=== PATIENT | female | born 1995 | race Caucasian/White ===

== ENCOUNTER 2022-03-30 09:13 | Inpatient (IN) | payer OTHER ==
[~2022-03-30] VITALS: Ht 165.1 cm; Wt 60.8 kg
[~2022-03-30 09:13] MED LIST: BENTYL 10MG CAP10 MG PO; CLEOCIN HCL300 MG PO; IBUPROFEN800 MG PO; ZOFRAN 4 MG TAB4 MG PO
[2022-03-30 10:07] LABS: HEMOGLOBIN 11.2 gm/dl (12.3-15.3); RED BLOOD COUNT 4.4 M/UL (4.00-5.10); WHITE BLOOD COUNT 24.2 K/UL (4.5-11.0)
[2022-04-01] MEDS ORDERED: HYDROCODON-ACE1 EAC4 PO (14:40)
[2022-04-01] MEDS ORDERED: COLACE 100MG C100 MG PO (14:40)
[2022-04-01] MEDS ORDERED: FERROCITE324 MG PO (14:40)
[2022-04-01] MEDS ORDERED: IBUPROFEN800 MG PO (14:40)
== END 2022-04-01 16:47 | disposition home or self-care (01) | DRG 806 ==
LOC: GENOP 09:13 → NSRY 09:53 → OB 09:53
PROVIDERS: Obstetrics & Gynecology; ADMIT Obstetrics & Gynecology
PROC: 10D07Z6 Extraction of Products of Conception, Vacuum, Via Natural or Artificial Opening (ICD-10-PCS; principal; 2022-03-30)
PROC: 10907ZC Drainage of Amniotic Fluid, Therapeutic from Products of Conception, Via Natural or Artificial Opening (ICD-10-PCS; 2022-03-30)
PROC: 3E033VJ Introduction of Other Hormone into Peripheral Vein, Percutaneous Approach (ICD-10-PCS; 2022-03-30)
PROC: 0W8NXZZ Division of Female Perineum, External Approach (ICD-10-PCS; 2022-03-30)
PROC: 4A1H7CZ Monitoring of Products of Conception, Cardiac Rate, Via Natural or Artificial Opening (ICD-10-PCS; 2022-03-30)
PROC: 10H073Z Insertion of Monitoring Electrode into Products of Conception, Via Natural or Artificial Opening (ICD-10-PCS; 2022-03-30)
PROC: 10H07YZ Insertion of Other Device into Products of Conception, Via Natural or Artificial Opening (ICD-10-PCS; 2022-03-30)
PROC: 3E0234Z Introduction of Serum, Toxoid and Vaccine into Muscle, Percutaneous Approach (ICD-10-PCS; 2022-03-30)
DX: O99.02 Anemia complicating childbirth (principal); D62 Acute posthemorrhagic anemia; Z37.0 Single live birth; O69.81X0 Labor and delivery complicated by cord around neck, without compression, not applicable or unspecified; O76 Abnormality in fetal heart rate and rhythm complicating labor and delivery; Z20.822 Contact with and (suspected) exposure to COVID-19; O99.824 Streptococcus B carrier state complicating childbirth; Z3A.37 37 weeks gestation of pregnancy; Z98.890 Other specified postprocedural states; Z28.310 Unvaccinated for COVID-19; Z83.3 Family history of diabetes mellitus; Z23 Encounter for immunization
CPT/HCPCS: 36415; 81001; 82800; 85014; 85018; 85025; 90715; J2590; U0002